=== PATIENT | male | born 1950 | race Caucasian/White ===

== ENCOUNTER 2018-09-16 14:44 | Inpatient (IN) | payer MEDICARE, BC ==
[~2018-09-16] VITALS: Ht 175.3 cm; Wt 86.4 kg
[2018-10-14] MEDS ORDERED: LISINOPRIL20 MG PO (10:19)
[2018-10-14] MEDS ORDERED: TIAZAC/CARDIZE180 MG (10:20)
[2018-10-14] MEDS ORDERED: OMEPRAZOLE20 M1 PO (10:21)
[2018-10-15 10:18] LABS: HEMOGLOBIN 15.3 g/dL (13.5-17.5); MCH 29.9 pg (26.0-34.0); MCV 87.9 fL (80.0-100.0); MEAN PLATELET VOLUME 9.7 fL (7.4-10.4); RBC 5.12 10x6/uL (4.20-6.10); WBC 9.2 10x3/uL (4.8-10.8)
[2018-10-15 11:40] VITALS: BP 127/71; BMI 28.1
--- NOTE | 2018-10-15 14:26 | NUR ---
PLASMA BLADE SET 6/8 BOVIE PAD RIGHT THIGH [id number] EXP 01/22/2020
[2018-10-15 16:03] VITALS: BP 117/72
[2018-10-15 17:27] VITALS: BP 117/71; Ht 175.3 cm; Wt 86.4 kg
[2018-10-15 20:00] VITALS: BP 127/64
--- NOTE | 2018-10-16 01:38 | NUR ---
I have reviewed this patient and I concur with the Shift Assessment completed by the Licensed Practical Nurse today this shift.
[2018-10-16 02:00] VITALS: BP 129/65
[2018-10-16 04:00] VITALS: BP 120/77
--- NOTE | 2018-10-16 08:01 | NUR ---
SITTING UP RIGHT IN BED, SHORT OF BREATH, STATED " I JUST WENT TO THE RESTROOM" PRESENT IN ROOM, SCD'S TURNED ON, IV TO LEFT FOREARM INFUSING 12 NS AT 75ML/HR. SAVITA DRAIN TO RIGHT SHOULDER, SCANT BLOODY DRAINAGE, DRESSING C/D/I, SHOULDER IMMOBILIZER SECURELY IN PLACE, DENIES ANY CURRENT NEEDS OR DISCOMFORTS, BED LOWERED AND LOCKED, CALL LIGHT WITHIN REACH. CPOC
[2018-10-16 08:02] LABS: HEMATOCRIT 39.6 % (42.0-54.0); HEMOGLOBIN 13.2 g/dL (13.5-17.5); MCH 29.2 pg (26.0-34.0); MCHC 33.3 g/dL (31.0-37.0); MCV 87.6 fL (80.0-100.0); MEAN PLATELET VOLUME 9.9 fL (7.4-10.4); RBC 4.52 10x6/uL (4.20-6.10); RDW 12.8 % (11.5-14.5)
--- NOTE | 2018-10-16 08:06 | OP ---
PATIENT NAME: RUSH SAUCEDO MEDICAL RECORD: [id number] :54 LOCATION:[id number] ADMISSION DATE:10/15/18 SURGEON: RUEL SINGH DO DATE OF OPERATION: 10/15/2018 PROCEDURE PERFORMED: Right reverse total shoulder arthroplasty. PREOPERATIVE DIAGNOSIS: Right shoulder rotator cuff tear arthropathy. POSTOPERATIVE DIAGNOSIS: Right shoulder rotator cuff tear arthropathy. INDICATIONS: Mr. Saucedo is a 68-year-old male who presented to my office a few months ago complaining of right shoulder pain and weakness. He has had it for some time. He had a rotator cuff repair in the past and feels like it torn again. An MRI was done, which indeed indicated a supraspinatus tear with 2 cm of retraction and some atrophy in the muscle belly. I informed him that the best option with him he did have some arthritis also in the shoulder with probably a reverse total shoulder that I could not guarantee a good result with a re-repair only that was torn and retracted. He was okay with that. He also had some high riding humeral head noted on the MRI. He was okay with that and decided he would go with that. I informed him of the risks and benefits including infection, bleeding, damage to nerve and vessels, fracture, need for further surgery, and damage to the axillary nerve. He was okay with all the risks and signed the consent. SURGEON: Ruel Singh DO ASSISTED BY: Jody Duenas. He helped assisting in holding retractors including closing. The patient received a block per anesthesia in the preoperative area. He was taken to the operative suite, laid in supine position, sedated and intubated, given a gram of vancomycin preoperatively, then he was sat up in the beach chair and the right shoulder was prepped and draped in sterile fashion. A timeout was performed and everyone was in agreement with the correct side, site, patient and procedure. Procedure then began by making an incision in the deltopectoral interval with a 10 blade scalpel. Then, a Bovie was used to cut through the soft tissue down to the cephalic vein. The cephalic vein was dissected out and taken laterally. The deltopectoral interval was further developed. A Agarwal was used to take the adhesions down off the deltoid on the humerus and a brown retractor was placed in that space. The clavipectoral fascia was then excised and the pec was released, the proximal centimeter of the pec, off the humerus. The bicep tendon was then tenodesed to that stump site on the humerus and then the bicep tendon was cut. It was traced up into the shoulder joint itself. The rotator cuff was noted on the supraspinatus and the retracted fibers. The subscapularis tendon was then tagged and peeled off the lesser tuberosity. Once it was peeled off, the humeral head was exposed. A cutting guide was placed into the humerus and the humeral head was removed with a saw. The glenoid was then exposed by removing the adhesions of the subscapularis with a Agarwal. Retractor was put around the glenoid and glenoid labrum was removed with a Bovie. The centering pin was then used on the glenoid. This was centered and then the reamer was used and the guide pin. A centering pin was used and then it was sized, drilled to be a 40 for the glenosphere. Once the 40 was put in, the outer reamer was used to clean up for the glenosphere and 2 peripheral screws were used both 22 in length and the anterior superior and posterior OPERATIVE REPORT [id number] RUSH SAUCEDO FELIPA inferior sites of getting good bite. An inferior anterior screw was used, a 14, but was removed because we did not get a good bite. This was removed. The glenosphere was then placed and impacted in and then tightened down and the humeral head was exposed, going down the shaft and then broaching began with 4 went to a 6, and then a calcar reamer was used to clear up any debris that was in the way and smoothed out the humeral head. The trial was then put on and a 6 poly. This was reduced. The patient was paralyzed and a sled was used to reduce it and had good tension on the conjoined tendon upon the reduction and good motion in all planes. Once that was performed, the shoulder was dislocated again with the use of a shoe horn as it did not come off easily indicating good fit. The trial was then removed from the humerus and the actual implant was put in and reduced with the shoe horn again. A good motion was noted with the actual implant as well as tension on the conjoined tendon and the deltoid fibers. Irrigation was then done. Surgicel beads were placed in the wound as well as vancomycin and tobramycin powder and a drain was placed in the shoulder. Then the shoulder was closed with 2-0 Vicryl in an interrupted fashion on the skin and a 4-0 Monocryl ran on the skin and then Prineo placed on the skin with glue, Telfa, and Tegaderm placed on top of that and the patient was awakened and taken to recovery in stable condition. Blood loss was about 100 mL. COMPLICATIONS: None. TRANSINT:[id number] Voice Confirmation ID: [id number] DOCUMENT ID: [id number] RUEL SINGH DO at 0806 CC: [id number] DICTATION DATE: 10/15/18 1438 GRADER PATROL: 10/16/18 0119 ADM IN [facility] [address] [place] [address]
[2018-10-16 08:08] LABS: WBC 13.8 10x3/uL (4.8-10.8)
[2018-10-16] MEDS ORDERED: ZOFRAN ODT4 MG/UDTAB PO (08:49)
[2018-10-16] MEDS ORDERED: OXYCODONE HCL5 M1 PO (08:49)
[2018-10-16 09:15] VITALS: BP 145/83
--- NOTE | 2018-10-16 11:06 | NUR ---
DISCHARGE INSTRUCTIONS GIVEN. VERBALIZES UNDERSTANDING. PT RECIEVED HARD COPY OF NEW PRESCRIPTIONS. DENIES ANY CURRENT NEEDS OR CONCERNS AT THIS CURRENT TIME. VERBALIZES UNDERSTANDING THAT THEY WILL NEED TO CALL THURSDAY AND MAKE FOLLOW UP APPOINTMENT WITH DR. SINGH. TRANSPORTED OFF UNIT VIA WHEELCHAIR WITH FAMILY MEMBER PRESENT.
== END 2018-10-16 10:22 | disposition home or self-care (01) | DRG 483 ==
LOC: D.SDCHOLD 10-08 10:45 → D.MS 10-15 09:49 → D.SDCHOLD 10-15 10:45 → D.MS 10-15 15:29
PROVIDERS: Anesthesiology; ADMIT Orthopaedic Surgery; ATTEND Orthopaedic Surgery
PROC: 0RRJ00Z Replacement of Right Shoulder Joint with Reverse Ball and Socket Synthetic Substitute, Open Approach (ICD-10-PCS; principal; 2018-10-15 12:00)
DX: M75.101 Unspecified rotator cuff tear or rupture of right shoulder, not specified as traumatic (principal); M12.9 Arthropathy, unspecified; I10 Essential (primary) hypertension; J44.9 Chronic obstructive pulmonary disease, unspecified; I25.10 Atherosclerotic heart disease of native coronary artery without angina pectoris